=== PATIENT | female | born 1945 | race Two or more races ===

== ENCOUNTER 2019-06-12 14:23 | Emergency (ER) | payer OTHER ==
[~2019-06-12] VITALS: Ht 162.6 cm; Wt 61.2 kg
[2019-06-12] MEDS ORDERED: AVAPRO150 MG (14:42)
[2019-06-12] MEDS ORDERED: MECLIZINE HCL25 MG PO (17:41)
== END 2019-06-12 18:32 | disposition home or self-care (01) ==
LOC: ER 14:23
DX: R42 Dizziness and giddiness (principal)